=== PATIENT | female | born 1995 | race Caucasian/White ===

== ENCOUNTER 2018-07-06 17:39 | Emergency (ER) | payer SELFPAY ==
--- NOTE | 2018-07-06 17:53 | ED.ADGEN ---
Past History Past Medical History: Anxiety, Seizure, Other Adult General Chief Complaint Chief Complaint :"..We where in the car... and she yelled.. then had shaking movements... like a seizure.. We stopped a the ambulance.. She seems back to normal now... " "I ve had a seizure once before.... but I don't take any seizure meds..." HPI HPI Patient is a 23 year old female who presents with above hx and complaints of a tonic clonic seizure like activity. Pt. only recent changes has been off Beta rony which she take for anxiety. Specific ill contacts. Currently spending holidays with family. No history of drug use. Minimal alcohol use. Etiology of early seizures never found. Patient reportedly after tonic clonic type movements had a episode of post ictal confusion which is now resolved. Currently without symptoms other than still feeling a little "cloudy" in her thought processes. Review of Systems Review of Systems Constitutional: Denies fever or chills [] Eyes: Denies change in visual acuity, redness, or eye pain [] HENT: Denies nasal congestion or sore throat [] Respiratory: Denies cough or shortness of breath [] Cardiovascular: No additional information not addressed in HPI [] GI: Denies abdominal pain, nausea, vomiting, bloody stools or diarrhea [] : Denies dysuria or hematuria [] Musculoskeletal: Denies back pain or joint pain [] Integument: Denies rash or skin lesions [] Neurologic: Denies headache, focal weakness or sensory changes []complaints of a tonic clonic seizure Endocrine: Denies polyuria or polydipsia [] All other systems were reviewed and found to be within normal limits, except as documented in this note. Family History Family History Noncontributory Current Medications Current Medications Current Medications Medications (Trade) Dose Ordered Sig/Abhijit Start Time Stop Time Status Last Admin Dose Admin Acetaminophen (Tylenol) 1,000 mg 1X ONCE 07/06/18 21:30 07/06/18 21:31 DC 07/06/18 21:16 1,000 MG Folic Acid (FOLIC ACID SYRINGE for ER) 5 mg STK-MED ONCE 07/06/18 18:30 07/06/18 18:31 DC Lorazepam (Ativan) 2 mg 1X ONCE 07/06/18 18:30 07/06/18 18:31 DC 07/06/18 18:45 2 MG Multivitamins/ Minerals (Infuvite Adult) 10 ml STK-MED ONCE 07/06/18 18:30 07/06/18 18:31 DC Multivitamins/ Minerals 10 ml/ Folic Acid 1 mg/ Thiamine HCl 100 mg/Lactated Ringer's 1,011.2 ml @ 1,011.2 mls/hr 1X ONCE 07/06/18 18:30 07/06/18 19:29 DC 07/06/18 18:46 1,011.2 MLS/HR Phytonadione (Vitamin K) 10 mg STK-MED ONCE 07/06/18 18:29 07/06/18 18:30 DC Thiamine HCl (Thiamine Vial) 200 mg STK-MED ONCE 07/06/18 18:29 07/06/18 18:30 DC Allergies Allergies Allergies Coded Allergies Type Severity Reaction Last Updated Verified No Known Drug Allergies 07/06/18 No Physical Exam Physical Exam Constitutional: Well developed, well nourished, no acute distress, non-toxic appearance. [] HENT: Normocephalic, atraumatic, bilateral external ears normal, oropharynx moist, no oral exudates, nose normal. [] Eyes: PERRLA, EOMI, conjunctiva normal, no discharge. [] Myopia Neck: Normal range of motion, no tenderness, supple, no stridor. [] Cardiovascular:Heart rate regular rhythm, no murmur [] Lungs & Thorax: Bilateral breath sounds clear to auscultation [] Abdomen: Bowel sounds normal, soft, no tenderness, no masses, no pulsatile masses. [] Skin: Warm, dry, no erythema, no rash. [] Back: No tenderness, no CVA tenderness. [] Extremities: No tenderness, no cyanosis, no clubbing, ROM intact, no edema. [] Neurologic: Alert and oriented X 3, normal motor function, normal sensory function, no focal deficits noted. []No field deficits. DTRs +2 at patella and brachial. [employer] equal. Right-hand dominant. Psychologic: Affect anxious, judgement normal, mood normal. [] Current Patient Data Vital Signs Vital Signs Date Time Temp Pulse Resp B/P (MAP) Pulse Ox O2 Delivery O2 Flow Rate FiO2 07/06/18 17:39 98.1 109 21 97 Room Air Lab Results Laboratory Tests Test 07/06/18 19:00 07/06/18 19:30 07/06/18 21:15 White Blood Count 9.7 x10^3/uL (4.0-11.0) Red Blood Count 4.24 x10^6/uL (3.50-5.40) Hemoglobin 12.8 g/dL (12.0-15.5) Hematocrit 38.5 % (36.0-47.0) Mean Corpuscular Volume 91 fL (79-100) Mean Corpuscular Hemoglobin 30 pg (25-35) Mean Corpuscular Hemoglobin Concent 33 g/dL (31-37) Red Cell Distribution Width 13.6 % (11.5-14.5) Platelet Count 244 x10^3/uL (140-400) Neutrophils (%) (Auto) 80 % (31-73) H Lymphocytes (%) (Auto) 14 % (24-48) L Monocytes (%) (Auto) 6 % (0-9) Eosinophils (%) (Auto) 0 % (0-3) Basophils (%) (Auto) 0 % (0-3) Neutrophils # (Auto) 7.7 x10^3uL (1.8-7.7) Lymphocytes # (Auto) 1.3 x10^3/uL (1.0-4.8) Monocytes # (Auto) 0.6 x10^3/uL (0.0-1.1) Eosinophils # (Auto) 0.0 x10^3/uL (0.0-0.7) Basophils # (Auto) 0.0 x10^3/uL (0.0-0.2) Erythrocyte Sedimentation Rate 24 (0-25) Sodium Level 139 mmol/L (136-145) Potassium Level 3.8 mmol/L (3.5-5.1) Chloride Level 101 mmol/L (98-107) Carbon Dioxide Level 29 mmol/L (21-32) Anion Gap 9 (6-14) Blood Urea Nitrogen 13 mg/dL (7-20) Creatinine 0.7 mg/dL (0.6-1.0) Estimated GFR (Cockcroft-Gault) 104.6 Glucose Level 109 mg/dL (70-99) H Calcium Level 8.8 mg/dL (8.5-10.1) Magnesium Level 2.2 mg/dL (1.8-2.4) Total Bilirubin 0.1 mg/dL (0.2-1.0) L Direct Bilirubin 0.1 mg/dL (0.0-0.2) Aspartate Amino Transferase (AST) 19 U/L (15-37) Alanine Aminotransferase (ALT) 19 U/L (14-59) Alkaline Phosphatase 67 U/L (46-116) Ammonia < 10 mcmol/L (11-34) L Creatine Kinase 79 U/L (26-192) Troponin I Quantitative < 0.017 ng/mL (0-0.055) Total Protein 7.2 g/dL (6.4-8.2) Albumin 3.7 g/dL (3.4-5.0) Prothrombin Time 9.8 SEC (9.4-11.4) Prothrombin Time INR 1.0 (0.9-1.1) PTT 23 SEC (23-33) Urine Collection Type Unknown Urine Color Yellow Urine Clarity Clear Urine pH 6.5 Urine Specific Grover 1.015 Urine Protein Neg (NEG-TRACE) Urine Glucose (UA) Neg mg/dL (NEG) Urine Ketones (Stick) Neg mg/dL (NEG) Urine Blood Neg (NEG) Urine Nitrite Neg (NEG) Urine Bilirubin Neg (NEG) Urine Urobilinogen Dipstick 0.2 mg/dL (0.2 mg/dL) Urine Leukocyte Esterase Neg (NEG) Urine RBC 0 /HPF (0-2) Urine WBC 0 /HPF (0-4) Urine Squamous Epithelial Cells Few /LPF Urine Bacteria Few /HPF (0-FEW) Urine Opiates Screen Neg (NEG) Urine Methadone Screen Neg (NEG) Urine Barbiturates Neg (NEG) Urine Phencyclidine Screen Neg (NEG) Urine Amphetamine/Methamphetamine Neg (NEG) Urine Benzodiazepines Screen Neg (NEG) Urine Cocaine Screen Neg (NEG) Urine Cannabinoids Screen Neg (NEG) Urine Ethyl Alcohol Neg (NEG) EKG EKG Interpretation EKG shows a sinus rhythm at 95 bpm. Some nonspecific contour abnormalities in anterior lateral region but no findings acute STEMI of contralateral changes.[] Radiology/Procedures Radiology/Procedures My interpretation CT of head shows no shift, mass, edema, bleed, or fracture.[] See formal report when available. My interpretation x-ray shows no acute cardiopulmonary findings. Course & Med Decision Making Course & Med Decision Making Pertinent Labs and Imaging studies reviewed. (See chart for details). Patient to not drive or do hazardous activity until follow-up primary care. Patient return if any concerns. Follow-up with neurology. Follow up with primary. [] Final Impression Final Impression 1. Tonic clonic seizure like activity[] Dragon Disclaimer Dragon Disclaimer This electronic medical record was generated, in whole or in part, using a voice recognition dictation system. JOVI KELLER MD Jul 06, 2018 17:53
[2018-07-06] MEDS ORDERED: PHYTONADIONE 10 MG/ML AMPUL. ONE (18:29)
[2018-07-06] MEDS ORDERED: THIAMINE 200 MG/2 ML VIAL. IV ONE (18:29)
[2018-07-06] MEDS ORDERED: LORazepam 1 MG TABLET PO ONE (18:30)
[2018-07-06] MEDS ORDERED: FOLIC ACID 5 MG/ML SYRINGE for ER IV ONE (18:30)
[2018-07-06] MEDS ORDERED: MVI, ADULT NO.4 WITH VIT K 10 ML, FOLIC ACID SYRINGE for ER 1 MG, THIAMINE INJ 100 MG i... IV ONE ×4 (18:30)
[2018-07-06] MEDS ORDERED: MVI, ADULT NO.4 WITH VIT K 10 ML VIAL IV ONE (18:30)
--- NOTE | 2018-07-06 18:59 | RAD ---
PQRS Compliance statement: One or more of the following individualized dose reduction techniques were utilized for this examination: 1. Automated exposure control. 2. Adjustment of the mA and/or kV according to patient size. 3. Use of iterative reconstruction technique. Indication:SEIZURE TODAY TECHNIQUE: CT head without IV contrast COMPARISON:None FINDINGS: No pathologic extra-axial or intra-axial fluid collection. The ventricles and basal cisterns are within normal limits. No acute intracranial bleed. No focal loss of cabrera-white differentiation. Visualized Orbits within normal limits. No suspicious calvarial lesion. Visualized paranasal sinuses and mastoid air cells are clear. IMPRESSION: No acute intracranial process. Electronically signed by: Heriberto Faith DO (07/06/2018 6:56 PM) [facility]
[2018-07-06 19:25] LABS: BASO % 0 % (0-3); EOS % 0 % (0-3); HEMATOCRIT 38.5 % (36.0-47.0); HEMOGLOBIN 12.8 g/dL (12.0-15.5); LYMPH # 1.3 x10^3/uL (1.0-4.8); LYMPH % 14 % (24-48); MEAN CORPUSCULAR HEMOGLOBIN 30 pg (25-35); MEAN CORPUSCULAR HGB CONC 33 g/dL (31-37); MEAN CORPUSCULAR VOLUME 91 fL (79-100); MONO # 0.6 x10^3/uL (0.0-1.1); MONO % 6 % (0-9); NEUT # 7.7 x10^3uL (1.8-7.7); NEUT % 80 % (31-73); PLATELET COUNT 244 x10^3/uL (140-400); RED BLOOD COUNT 4.24 x10^6/uL (3.50-5.40); RED CELL DISTRIBUTION WIDTH 13.6 % (11.5-14.5); WHITE BLOOD COUNT 9.7 x10^3/uL (4.0-11.0)
[2018-07-06 19:37] LABS: ALBUMIN 3.7 g/dL (3.4-5.0); CALCIUM 8.8 mg/dL (8.5-10.1); CREATININE 0.7 mg/dL (0.6-1.0); DIRECT BILIRUBIN 0.1 mg/dL (0.0-0.2); GFR 104.6; MAGNESIUM 2.2 mg/dL (1.8-2.4); POTASSIUM 3.8 mmol/L (3.5-5.1); TOTAL BILIRUBIN 0.1 mg/dL (0.2-1.0); TOTAL PROTEIN 7.2 g/dL (6.4-8.2)
[2018-07-06 20:30] LABS: SEDIMENTATION RATE 24 (0-25)
--- NOTE | 2018-07-06 21:14 | EKG ---
[address] [address] Test Date: 2018-07-06 Test Time: 18:28:02 Pat Name: AARON TELLEZ Department: Room: Gender: F Telecommunications Professional: : [id number] Requested By: JOVI KELLER Order Number: [id number] Reading MD: Dashawn Evans MD Measurements Intervals [place]lap Rate: 95 P: 50 AR: 136 QRS: 44 QRSD: 88 T: 46 QT: 352 QTc: 446 Interpretive Statements SINUS RHYTHM Electronically Signed On 07-09-2018 8:41:50 [employer] by Dashawn Evans MD
[2018-07-06 21:30] VITALS: BP 120/64
[2018-07-06] MEDS ORDERED: ACETAMINOPHEN 500 MG TABLET PO ONE (21:30)
--- NOTE | 2018-07-06 21:42 | RAD ---
PA and lateral chest radiograph. History: Generalized tonic-clonic seizure. Comparison: None. Findings: Cardiomediastinal silhouette is within normal limits for size. Bilateral lung [place] appear clear without evidence of infiltrate, effusion, or pneumothorax. Impression: 1. No acute cardiopulmonary process. Electronically signed by: Martin Calderon MD (07/06/2018 9:38 PM) [id number]
[2018-07-06 21:45] LABS: BARBITURATES NEG (NEG); BENZODIAZEPINES NEG (NEG); CANNABINOIDS NEG (NEG); CLARITY,URINE CLEAR; COCAINE NEG (NEG); COLOR,URINE YELLOW; METHADONE NEG (NEG); OPIATES NEG (NEG); PHENCYCLIDINE NEG (NEG)
[2018-07-06 21:46] LABS: BACTERIA,URINE FEW /HPF (0-FEW); BILIRUBIN,URINE NEG (NEG); GLUCOSE,URINE NEG (NEG); NITRITE,URINE NEG (NEG); RBC,URINE 0 /HPF (0-2); SQUAMOUS EPITHELIAL CELL,UR FEW /LPF; UROBILINOGEN,URINE 0.2 mg/dL (0.2 mg/dL); WBC,URINE 0 /HPF (0-4)
[2018-07-06 22:23] LABS: AMPHETAMINE/METHAMPHETAMINE NEG (NEG)
== END 2018-07-06 21:59 | disposition home or self-care (01) ==
LOC: ER 17:39
DX: G40.89 Other seizures (principal); R41.82 Altered mental status, unspecified; F10.10 Alcohol abuse, uncomplicated; F41.9 Anxiety disorder, unspecified; Y90.0 Blood alcohol level of less than 20 mg/100 ml
CPT/HCPCS: 36415; 70450; 71046; 80048; 80076; 80307; 81001; 82140; 82550; 83735; 84484; 85025; 85610; 85651; 85730; 93005; 96365; 96366; 99284; J7120